=== PATIENT | female | born 1945 | race Two or more races ===

== ENCOUNTER 2021-09-09 11:37 | Inpatient (IN) | payer MEDICARE, SELFPAY ==
[2021-09-09 12:31] VITALS: BP 141/63; PULSE 86; RESP 16; TEMP 36.8; O2SAT 99; BMI 38.7
[2021-09-09 12:56] LABS: Appearance Urine CLOUDY; Color Urine YELLOW; Glucose Urine UA NEG (NEG); Leukocyte Esterase Urine 3+ (NEG); Nitrite Urine NEG (NEG); PH 5.5 (5.0-8.0); UACC Culture Trigger YES; Urine Blood NEG (NEG); Urine Ketones NEG (NEG); Urine Protein NEG (NEG-TRACE)
[2021-09-09 13:05] LABS: WBC Urine 30-49 /HPF (0-4)
[2021-09-09 13:06] LABS: Bacteria Urine 1+ /LPF; COVID-19 Test Negative (Negative); Squamous Epithelial Cell Urine 2+ /LPF
[2021-09-09 13:07] LABS: Amphetamine Screen Urine Not Detected (Not Detect); Barbiturates, Urine Not Detected (Not Detect); Benzodiazepines Screen Urine Not Detected (Not Detect); Cannabinoid Screen Urine Not Detected (Not Detect); Cocaine Screen Urine Not Detected (Not Detect); Fentanyl, urine Not Detected (Not Detect); Opiate Screen Urine Not Detected (Not Detect); Phencyclidine Screen Urine Not Detected (Not Detect)
--- NOTE | 2021-09-09 13:16 | PHA.MEDREC ---
Pharmacy Consult ? Medication Reconciliation Pharmacy has completed the medication reconciliation. Patient reports that she does not take the trazodone and melatonin. She reported that she took some medications this morning but told nurse Naida that she has not taken medications for 4 days. Adriana Arroyo, PharmD
[2021-09-09 13:35] LABS: MANUAL DIFF FLAG NO
[2021-09-09 13:41] LABS: Basophils Percent Auto 0.5 % (0-2); Eosinophils Absolute Auto 0.2 X10*3/uL (0.0-0.4); Eosinophils Percent Auto 2.3 % (0-4); Imm Gran Abs Auto 0.02 X10*3/uL (0.00-0.03); Imm Gran Pct Auto 0.3 % (0.0-0.4); Lymphocytes Absolute Auto 1.4 X10*3/uL (1.2-4.9); Lymphocytes Percent Auto 20.7 % (20-40); Mean Corpuscular HGB Conc 31.4 g/dl (31.0-35.0); Mean Corpuscular Hemoglobin 28.3 pg (27.0-33.0); Mean Platelet Volume 9.5 fL (9.4-12.3); Monocytes Absolute Auto 0.5 X10*3/uL (0.1-1.2); Monocytes Percent Auto 7.4 % (2-11); Neutrophils Absolute Auto 4.6 x10*3/uL (2.0-8.3); Neutrophils Percent Auto 68.8 % (45-73); Platelet Count 240 X10*3/uL (160-400); Red Blood Count 3.89 X10*6/uL (4.20-5.50); White Blood Count 6.6 X10*3/uL (4.8-10.8)
[2021-09-09 13:52] LABS: Alanine Aminotransferase 14 U/L (0-31); Albumin Level 4.3 g/dL (3.5-5.0); Alkaline Phosphatase 73 U/L (39-117); Anion Gap 16 (12-20); Aspartate Amino Transferase 16 U/L (5-31); Bilirubin Direct 0.2 mg/dL (0.0-0.5); Bilirubin Total 0.3 mg/dL (0.0-1.0); Blood Urea Nitrogen 23 mg/dL (9-16); Calcium 8.9 mg/dL (8.4-10.2); Carbon Dioxide 24 mmol/L (22-29); Chloride 101 mmol/L (96-108); Creatinine Clr Calc Pharmacy 35.7; Estimated Glomerular Filt Rate 38; Glucose Random 109 mg/dL (60-115); Magnesium 2.1 mg/dL (1.6-2.6); Potassium 3.8 mmol/L (3.3-5.1); Sodium 137 mmol/L (135-145)
--- NOTE | 2021-09-09 14:42 | ED.PSYCH ---
HPI - Psych General Chief Complaint: Psychiatric Symptoms Stated Complaint: crisis Time Seen by Provider: 09/09/21 12:18 Source: patient Mode of arrival: ambulatory History of Present Illness HPI Narrative: 75-year-old female presenting to the ED reporting increased anxiety x1 week with medication noncompliance. Reports decreased food intake. States felt like this was the last time she was going to see her house, but denies SI/HI. Denies EtOH/illicit drugs, CP/SOB, abdominal pain, nausea/vomiting, visual and auditory hallucinations MD complaint: feels depressed and anxiety Related Data Home Medications Medication Instructions Recorded Confirmed aspirin 81 mg tablet,delayed 1 tab PO DAILY 09/09/21 09/09/21 release atorvastatin 20 mg tablet 1 tab PO DAILY 09/09/21 09/09/21 cyanocobalamin (vitamin B-12) 1 tab PO DAILY 09/09/21 09/09/21 1,000 mcg tablet escitalopram oxalate 10 mg tablet 1 tab PO DAILY 09/09/21 09/09/21 fluticasone propionate 110 1 puff INHALATION BID PRN 09/09/21 09/09/21 mcg/actuation HFA aerosol inhaler (Flovent HFA) furosemide 40 mg tablet 1 tab PO DAILY 09/09/21 09/09/21 gabapentin 300 mg capsule 1 cap PO DAILY 09/09/21 09/09/21 levothyroxine 50 mcg tablet 1 tab PO DAILY 09/09/21 09/09/21 meloxicam 15 mg tablet 1 tab PO DAILY 09/09/21 09/09/21 olmesartan 20 1 tab PO DAILY 09/09/21 09/09/21 mg-hydrochlorothiazide 12.5 mg tablet vit C 250 mg-vit E 90 mg-zinc 40 1 cap PO BID 09/09/21 09/09/21 mg-copper 1 [id number] capsule (PreserVision AREDS-2) Allergies Allergy/AdvReac Type Severity Reaction Status Date / Time No Known Allergies Allergy Unverified 09/09/21 12:18 Review of Systems Review of Systems: Constitutional: No Fever, No Chills, No Fatigue, No Malaise ENT/Mouth: No Ear Pain, No Nasal Congestion, No sore throat, No Swallowing Difficulty Eyes: No Eye Pain, No Swelling, No Redness Cardiovascular: No Chest Pain, No SOB, No Edema Respiratory: No Cough, No Dyspnea Gastrointestinal: No Nausea, No Vomiting, No Diarrhea, No Constipation, No Abdominal pain Genitourinary: No Dysuria, No Urinary Frequency, No Hematuria Musculoskeletal: No joint pain, No Myalgias, No Joint Swelling Skin: No Skin Lesions, No rash Neuro: No Weakness, No Headache Psych: + Anxiety/Panic, + Depression, No SI/HI/AH/VH Yes all other systems are reviewed and are negative [facility] Past Medical History Attestation statement: The following information was validated with the patient. Social History Social History Advance Directives: No Physical Exam Vital Signs: Vital Signs: Last Vital Signs Temp 98.3 F 09/09/21 12:31 Pulse 86 09/09/21 12:31 Resp 16 09/09/21 12:31 BP 141/63 H 09/09/21 12:31 Pulse Ox 99 09/09/21 12:31 Body Mass Index 38.7 Const: General: cooperative and no acute distress Orientation/consciousness: patient oriented x3 Limitations: no limitations HENMT: Head: Yes normal to inspection Ears: hearing grossly normal bilaterally General nose exam: Normal external nose present Face and sinus: Yes normal facial exam Eyes: General: appearance normal, both eyes and all related structures EOM: EOMs intact bilaterally Neck: Neck: Yes normal visual inspection and Yes no meningeal signs Resp: Effort & Inspection: normal respiratory effort Auscultation: clear to auscultation bilaterally, no rales, no rhonchi and no wheezes Cardio: Rate: regular rate Heart sounds: S1 normal heart sound present and S2 normal heart sound present GI: Inspection: Yes normal to inspection Palpation (GI): Soft to palpation, nontender, no guarding and not rigid Skin: Rashes: no rashes Wounds: no wounds Neuro: General: patient oriented x3, gait normal, tone normal, no meningeal signs and CN's II-XI intact bilaterally Gait exam (Neuro): Normal gait present Extrem: General: Yes normal to inspection Psych: Affect: Anxious affect present Attitude: cooperative Thought content: no homicidality Insight: Fair insight present (Psych) Course Course Course Narrative: -[id number]-- no leukocytosis. labs otherwise unremarkable - UA infected patient given p.o. Ceftin 250mg bid x 7 days MDM - Psych MDM Narrative Medical decision making narrative: 75-year-old female presenting to the ED reporting increased anxiety x1 week with medication noncompliance. on exam vital signs stable, NAD/nontoxic, physical exam as above. Rule out organic causes including metabolic/infectious etiology & obtain crisis eval -patient was evaluated outpatient and is now a voluntary inpatient bed search Medical Records Attestation: I reviewed the patient's medical records. Lab Data Attestation: I reviewed the patient's lab results. Result diagrams: 09/09/21 13:31 09/09/21 13:31 Labs: Lab Results 09/09/21 09/09/21 09/09/21 Range/Units 12:42 12:42 12:42 WBC (4.8-10.8) X10*3/uL RBC (4.20-5.50) X10*6/uL Hgb (12.0-16.0) g/dl Hct (37.0-47.0) % MCV (80.0-98.0) fL MCH (27.0-33.0) pg MCHC (31.0-35.0) g/dl RDW (11.0-16.0) % Plt Count (160-400) X10*3/uL MPV (9.4-12.3) fL Immature Gran % (Auto) (0.0-0.4) % Neut % (Auto) (45-73) % Lymph % (Auto) (20-40) % [place] % (Auto) (2-11) % Eos % (Auto) (0-4) % Baso % (Auto) (0-2) % Lymph # (Auto) (1.2-4.9) X10*3/uL [place] # (Auto) (0.1-1.2) X10*3/uL Eos # (Auto) (0.0-0.4) X10*3/uL Baso # (Auto) (0.0-0.2) X10*3/uL Abs Immat Gran (auto) (0.00-0.03) X10*3/uL Absolute Neuts (auto) (2.0-8.3) x10*3/uL Absolute Nucleated RBC (0.0-0.012) X10*3/uL Nucleated RBC % (auto) (0.0-0.2) /100WBC Sodium (135-145) mmol/L Potassium (3.3-5.1) mmol/L Chloride (96-108) mmol/L Carbon Dioxide (22-29) mmol/L Anion Gap (12-20) BUN (9-16) mg/dL Creatinine (0.5-1.4) mg/dL Estim Creat Clear Calc Estimated GFR Random Glucose (60-115) mg/dL Calcium (8.4-10.2) mg/dL Magnesium (1.6-2.6) mg/dL Total Bilirubin (0.0-1.0) mg/dL Direct Bilirubin (0.0-0.5) mg/dL AST (5-31) U/L ALT (0-31) U/L Alkaline Phosphatase (39-117) U/L Total Protein (6.5-8.0) g/dL Albumin (3.5-5.0) g/dL Urine Color YELLOW Urine Appearance CLOUDY Urine pH 5.5 (5.0-8.0) Ur Specific [place] 1.020 (1.005-1.025) Urine Protein NEG (NEG-TRACE) MG/DL Urine Glucose (UA) NEG (NEG) MG/DL Urine Ketones NEG (NEG) MG/DL Urine Blood NEG (NEG) Urine Nitrite NEG (NEG) Ur Leukocyte Esterase 3+ H (NEG) Urine RBC 1-4 (0) /HPF Urine WBC 30-49 H (0-4) /HPF Ur Squamous Epith Cells 2+ /LPF Urine Bacteria 1+ /LPF Urine Opiates Screen Not Detected (Not Detect) Urine Fentanyl Screen Not Detected (Not Detect) Ur Barbiturates Screen Not Detected (Not Detect) Ur Phencyclidine Scrn Not Detected (Not Detect) Ur Amphetamines Screen Not Detected (Not Detect) U Benzodiazepines Scrn Not Detected (Not Detect) Urine Cocaine Screen Not Detected (Not Detect) U Marijuana (THC) Screen Not Detected (Not Detect) COVID-19 ([facility]) Negative (Negative) COVID-19 Clin Com See Note 09/09/21 09/09/21 Range/Units 13:31 13:31 WBC 6.6 (4.8-10.8) X10*3/uL RBC 3.89 L (4.20-5.50) X10*6/uL Hgb 11.0 L (12.0-16.0) g/dl Hct 35.0 L (37.0-47.0) % MCV 90.0 (80.0-98.0) fL MCH 28.3 (27.0-33.0) pg MCHC 31.4 (31.0-35.0) g/dl RDW 13.0 (11.0-16.0) % Plt Count 240 (160-400) X10*3/uL MPV 9.5 (9.4-12.3) fL Immature Gran % (Auto) 0.3 (0.0-0.4) % Neut % (Auto) 68.8 (45-73) % Lymph % (Auto) 20.7 (20-40) % [place] % (Auto) 7.4 (2-11) % Eos % (Auto) 2.3 (0-4) % Baso % (Auto) 0.5 (0-2) % Lymph # (Auto) 1.4 (1.2-4.9) X10*3/uL [place] # (Auto) 0.5 (0.1-1.2) X10*3/uL Eos # (Auto) 0.2 (0.0-0.4) X10*3/uL Baso # (Auto) 0.0 (0.0-0.2) X10*3/uL Abs Immat Gran (auto) 0.02 (0.00-0.03) X10*3/uL Absolute Neuts (auto) 4.6 (2.0-8.3) x10*3/uL Absolute Nucleated RBC 0.000 (0.0-0.012) X10*3/uL Nucleated RBC % (auto) 0.0 (0.0-0.2) /100WBC Sodium 137 (135-145) mmol/L Potassium 3.8 (3.3-5.1) mmol/L Chloride 101 (96-108) mmol/L Carbon Dioxide 24 (22-29) mmol/L Anion Gap 16 (12-20) BUN 23 H (9-16) mg/dL Creatinine 1.36 (0.5-1.4) mg/dL Estim Creat Clear Calc 35.7 Estimated GFR 38 Random Glucose 109 (60-115) mg/dL Calcium 8.9 (8.4-10.2) mg/dL Magnesium 2.1 (1.6-2.6) mg/dL Total Bilirubin 0.3 (0.0-1.0) mg/dL Direct Bilirubin 0.2 (0.0-0.5) mg/dL AST 16 (5-31) U/L ALT 14 (0-31) U/L Alkaline Phosphatase 73 (39-117) U/L Total Protein 7.0 (6.5-8.0) g/dL Albumin 4.3 (3.5-5.0) g/dL Urine Color Urine Appearance Urine pH (5.0-8.0) Ur Specific [place] (1.005-1.025) Urine Protein (NEG-TRACE) MG/DL Urine Glucose (UA) (NEG) MG/DL Urine Ketones (NEG) MG/DL Urine Blood (NEG) Urine Nitrite (NEG) Ur Leukocyte Esterase (NEG) Urine RBC (0) /HPF Urine WBC (0-4) /HPF Ur Squamous Epith Cells /LPF Urine Bacteria /LPF Urine Opiates Screen (Not Detect) Urine Fentanyl Screen (Not Detect) Ur Barbiturates Screen (Not Detect) Ur Phencyclidine Scrn (Not Detect) Ur Amphetamines Screen (Not Detect) U Benzodiazepines Scrn (Not Detect) Urine Cocaine Screen (Not Detect) U Marijuana (THC) Screen (Not Detect) COVID-19 ([facility]) (Negative) COVID-19 Clin Com Discharge Plan Discharge Clinical Impression: Acute UTI, Depressed, Anxiety Patient Disposition: Still a Patient Prescriptions: No Action furosemide 40 mg tablet 1 tab PO DAILY RF: 0 atorvastatin 20 mg tablet 1 tab PO DAILY RF: 0 meloxicam 15 mg tablet 1 tab PO DAILY RF: 0 cyanocobalamin (vitamin B-12) 1,000 mcg tablet 1 tab PO DAILY RF: 0 aspirin 81 mg tablet,delayed release (DR/EC) 1 tab PO DAILY RF: 0 levothyroxine 50 mcg tablet 1 tab PO DAILY RF: 0 gabapentin 300 mg capsule 1 cap PO DAILY RF: 0 Flovent HFA 110 mcg/actuation HFA aerosol inhaler 1 puff inhalation BID PRN (Reason: Wheezing) RF: 0 escitalopram oxalate 10 mg tablet 1 tab PO DAILY RF: 0 olmesartan-hydrochlorothiazide 20-12.5 mg tablet 1 tab PO DAILY RF: 0 PreserVision AREDS-2 250-90-40-1 mg capsule 1 cap PO BID RF: 0
[2021-09-09 16:20] VITALS: BP 176/64; PULSE 85; RESP 18; TEMP 36.3; O2SAT 100
[2021-09-09 16:52] VITALS: BP 176/64; PULSE 85
[2021-09-09] MEDS: cloNIDine HCL 0.1 MG TABLET PO (16:52)
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
[2021-09-09 18:13] VITALS: BP 105/62; PULSE 82
[2021-09-09] MEDS: traZODone HCL 50 MG TABLET PO (21:04)
[2021-09-09] MEDS: NaPROXEN 250 MG TABLET PO (21:04)
[2021-09-10] MEDS: Levothyroxine Sodium 50 MCG TABLET PO (06:46)
[2021-09-10] MEDS: Escitalopram Oxalate 10 MG TABLET PO (08:43)
[2021-09-10] MEDS: NaPROXEN 250 MG TABLET PO ×2 (08:43→21:28)
[2021-09-10] MEDS: Cyanocobalamin (Vitamin B-12) 1,000 MCG TABLET 1000 MCG PO (08:43)
[2021-09-10] MEDS: Gabapentin 300 MG CAPSULE PO (08:43)
[2021-09-10] MEDS: Aspirin Enteric Coated 81 MG TABLET.DR PO (08:44)
[2021-09-10 08:55] VITALS: BP 120/51; PULSE 80; RESP 18; TEMP 36.4; O2SAT 97
--- NOTE | 2021-09-10 09:21 | MHC.CLN ---
NUTRITION ADDED 2 GRAM SODIUM TO DIET ORDER. PATIENT TAKES DIURETICS.
[2021-09-10 10:01] VITALS: BP 133/69; PULSE 93
[2021-09-10] MEDS: Valsartan 80 MG TABLET PO (10:01)
[2021-09-10] MEDS: hydroCHLOROthiazide 12.5 MG TABLET PO (10:02)
[2021-09-10] MEDS: Furosemide 40 MG TABLET PO (10:02)
[2021-09-10 10:14] VITALS: BP 133/69; PULSE 93
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
[2021-09-10] MEDS: OLANZapine 5 MG TABLET PO (21:27)
[2021-09-10] MEDS: Mirtazapine 15 MG TABLET PO (21:28)
[2021-09-10] MEDS: Atorvastatin Calcium 20 MG TABLET PO (21:28)
[2021-09-10 21:34] VITALS: BP 123/58; PULSE 73; TEMP 37.1; O2SAT 98
--- NOTE | 2021-09-11 | ECG_ITS ---
Test Reason : qtc prolongation Blood Pressure : / mmHG Vent. Rate : 064 BPM Atrial Rate : 064 BPM P-R Int : 178 ms QRS Dur : 076 ms QT Int : 424 ms P-R-T Axes : 048 004 101 degrees QTc Int : 437 ms Normal sinus rhythm T wave abnormality, consider anterolateral ischemia Abnormal ECG No previous ECGs available Referred By: Michelle Azevedo Electronically Signed By:KYLAH CHAPPELL MD
[2021-09-11] MEDS: Levothyroxine Sodium 50 MCG TABLET PO (06:29)
[2021-09-11 07:00] VITALS: BMI 41.0
--- NOTE | 2021-09-11 07:46 | HO.PSYCHPN ---
Subjective Subjective Date of Service: 09/11/21 Reason For Visit: crisis Subjective Notes: Conditional Voluntary Interim History: Pt reports feeling depressed. She denies SI/HI. She reports sleep and appetite are okay. She reports anxious mood. Per nursing, she is taking medications as prescribed. She is mostly in her room. No behavioral concerns. Note that culture does not show UTI, pt denies any symptoms. will stop ceftin. Medication Compliance: Yes Side effects from medications: No Review of Systems Review of Systems Constitutional: No Fever, No Chills, No Fatigue, No Malaise ENT/Mouth: No Ear Pain, No Nasal Congestion, No sore throat, No Swallowing Difficulty Eyes: No Eye Pain, No Swelling, No Redness Cardiovascular: No Chest Pain, No SOB, No Edema Respiratory: No Cough, No Dyspnea Gastrointestinal: No Nausea, No Vomiting, No Diarrhea, No Constipation, No Abdominal pain Genitourinary: No Dysuria, No Urinary Frequency, No Hematuria Musculoskeletal: No joint pain, No Myalgias, No Joint Swelling Skin: No Skin Lesions, No rash Neuro: No Weakness, No Headache Psych: + Anxiety/Panic, + Depression, No SI/HI/AH/VH Yes all other systems are reviewed and are negative Mental Status Exam Mental Status Exam Narrative: appropriately dressed and groomed. PMR. cooperative. speech slowed and soft with increased latency, decreased prosody. thoughts linear and logical without apparent delusions or paranoia. affect constricted, hypo-intense, non-labile. mood depressed and anxious. denies SI/HI/AVH. Diagnostics Vital Signs (24Hr): Vital Signs - 24 hr 09/11/21 09:00 09/11/21 09:33 09/11/21 21:15 Temperature 98.6 F 97.3 F Pulse Rate 81 81 63 Respiratory Rate 16 Blood Pressure 146/65 H 146/65 H 139/61 Pulse Oximetry 96 100 Body Mass Index 41.0 Labs Results: 09/09/21 13:31 09/09/21 13:31 Medications Medications Current Medications Acetaminophen (Acetaminophen 325 Mg Tablet) 650 mg PO Q6H PRN PRN Reason: Headache/Pain Mild Scale (1-3) Al Hydroxide/Mg Hydroxide (Magnesium Hydrox/Alum Hydrox 30 Ml Oral.Susp) 30 ml PO Q6H PRN PRN Reason: Heartburn/Nausea Aspirin (Aspirin Enteric Coated 81 Mg Tablet.Dr) 81 mg PO DAILY [facility] Last Admin: 09/11/21 09:33 Dose: 81 mg Documented by: Atorvastatin Calcium (Atorvastatin Calcium 20 Mg Tablet) 20 mg PO BEDTIME [facility] Last Admin: 09/11/21 21:20 Dose: 20 mg Documented by: Clonidine HCl (Clonidine Hcl 0.1 Mg Tablet) 0.1 mg PO Q4H PRN; Protocol PRN Reason: Sbp > 150 Last Admin: 09/09/21 16:52 Dose: 0.1 mg Documented by: Cyanocobalamin (Cyanocobalamin (Vitamin B-12) 1,000 Mcg Tablet) 1,000 mcg PO DAILY [facility] Last Admin: 09/11/21 09:32 Dose: 1,000 mcg Documented by: Escitalopram Oxalate (Escitalopram Oxalate 10 Mg Tablet) 10 mg PO DAILY [facility] Last Admin: 09/11/21 09:34 Dose: 10 mg Documented by: Fluticasone Propionate (Fluticasone Propionate 100 Mcg Blst.W.Dev) 1 puff INHALE RBID PRN PRN Reason: Wheezing Furosemide (Furosemide 40 Mg Tablet) 40 mg PO DAILY [facility]; Protocol Last Admin: 09/11/21 09:33 Dose: 40 mg Documented by: Gabapentin (Gabapentin 300 Mg Capsule) 300 mg PO DAILY [facility] Last Admin: 09/11/21 09:34 Dose: 300 mg Documented by: Hydrochlorothiazide (Hydrochlorothiazide 12.5 Mg Tablet) 12.5 mg PO DAILY [facility] Last Admin: 09/11/21 09:33 Dose: 12.5 mg Documented by: Hydroxyzine HCl (Hydroxyzine Hcl 25 Mg Tablet) 25 mg PO BEDTIME PRN PRN Reason: Anxiety Levothyroxine Sodium (Levothyroxine Sodium 50 Mcg Tablet) 50 mcg PO DAILY@0600 [facility] Last Admin: 09/12/21 06:15 Dose: 50 mcg Documented by: Magnesium Hydroxide (Milk Of Magnesia 30 Ml Oral.Susp) 30 ml PO DAILY PRN PRN Reason: Constipation Last Admin: 09/11/21 21:24 Dose: 30 ml Documented by: Mirtazapine (Mirtazapine 15 Mg Tablet) 15 mg PO BEDTIME [facility] Last Admin: 09/11/21 21:20 Dose: 15 mg Documented by: Mirtazapine (Mirtazapine 15 Mg Tablet) 15 mg PO BEDTIME PRN PRN Reason: insomnia Naproxen (Naproxen 250 Mg Tablet) 250 mg PO BID [facility] Last Admin: 09/11/21 21:20 Dose: 250 mg Documented by: Olanzapine (Olanzapine 5 Mg Tablet) 5 mg PO BEDTIME [facility] Last Admin: 09/11/21 21:20 Dose: 5 mg Documented by: Polyethylene Glycol (Polyethylene Glycol 3350 17 Gm Powd.Pack) 17 gm PO DAILY PRN PRN Reason: Constipation Last Admin: 09/11/21 11:55 Dose: 17 gm Documented by: Trazodone HCl (Trazodone Hcl 50 Mg Tablet) 50 mg PO BEDTIME PRN PRN Reason: Insomnia Last Admin: 09/09/21 21:04 Dose: 50 mg Documented by: Valsartan (Valsartan 80 Mg Tablet) 80 mg PO DAILY [facility] Last Admin: 09/11/21 09:33 Dose: 80 mg Documented by: Allergies Allergies Allergy/AdvReac Type Severity Reaction Status Date / Time No Known Allergies Allergy Unverified 09/09/21 12:18 Assessment & Plan Assessment & Plan (1) Major depressive disorder, recurrent severe without psychotic features: Status: Acute Code(s): F33.2 - Major depressive disorder, recurrent severe without psychotic features Assessment and Plan: PLAN: continue per primary treatment team. start remeron at HS for appetite stimulation, sedation, and anti-depressant effect. start zyprexa at HS for appetite stimulation, sedation, anxiolytic and anti-depressant effect. continue home meds otherwise. I spent minutes with the patient and/or on the patient floor today, greater than?50% of which was spent counseling/coordinating care. Reason for contiued inpatient stay Substantial Risk for: inability to function
[2021-09-11 09:00] VITALS: BP 146/65; PULSE 81; RESP 16; TEMP 37; O2SAT 96
[2021-09-11] MEDS: Cyanocobalamin (Vitamin B-12) 1,000 MCG TABLET 1000 MCG PO (09:32)
[2021-09-11] MEDS: NaPROXEN 250 MG TABLET PO ×2 (09:32→21:20)
[2021-09-11 09:33] VITALS: BP 146/65; PULSE 81
[2021-09-11] MEDS: Aspirin Enteric Coated 81 MG TABLET.DR PO (09:33)
[2021-09-11] MEDS: hydroCHLOROthiazide 12.5 MG TABLET PO (09:33)
[2021-09-11] MEDS: Furosemide 40 MG TABLET PO (09:33)
[2021-09-11] MEDS: Valsartan 80 MG TABLET PO (09:33)
[2021-09-11] MEDS: Gabapentin 300 MG CAPSULE PO (09:34)
[2021-09-11] MEDS: Escitalopram Oxalate 10 MG TABLET PO (09:34)
[2021-09-11] MEDS: polyethylene glycoL 3350 17 GM POWD.PACK PO (11:55)
[2021-09-11 21:15] VITALS: BP 139/61; PULSE 63; TEMP 36.3; O2SAT 100
[2021-09-11] MEDS: Mirtazapine 15 MG TABLET PO (21:20)
[2021-09-11] MEDS: OLANZapine 5 MG TABLET PO (21:20)
[2021-09-11] MEDS: Atorvastatin Calcium 20 MG TABLET PO (21:20)
[2021-09-11] MEDS: Milk of Magnesia 30 ML ORAL.SUSP PO (21:24)
[2021-09-12] MEDS: Levothyroxine Sodium 50 MCG TABLET PO (06:15)
--- NOTE | 2021-09-12 06:19 | PC.NURSE ---
on rising patient reports + BM. showered after having movement.
[2021-09-12 08:04] VITALS: BP 156/71; PULSE 75; RESP 17; TEMP 36.3; O2SAT 99
[2021-09-12] MEDS: Aspirin Enteric Coated 81 MG TABLET.DR PO (08:27)
[2021-09-12] MEDS: NaPROXEN 250 MG TABLET PO ×2 (08:27→21:32)
[2021-09-12] MEDS: Furosemide 40 MG TABLET PO (08:27)
[2021-09-12] MEDS: Cyanocobalamin (Vitamin B-12) 1,000 MCG TABLET 1000 MCG PO (08:27)
[2021-09-12 08:28] VITALS: BP 156/71; PULSE 75
[2021-09-12] MEDS: hydroCHLOROthiazide 12.5 MG TABLET PO (08:28)
[2021-09-12] MEDS: Valsartan 80 MG TABLET PO (08:28)
[2021-09-12] MEDS: Gabapentin 300 MG CAPSULE PO (08:28)
[2021-09-12] MEDS: Escitalopram Oxalate 10 MG TABLET PO (08:29)
--- NOTE | 2021-09-12 12:31 | HO.PSYCHPN ---
Subjective Subjective Date of Service: 09/12/21 Reason For Visit: crisis Interim History: pt seen with seismic interpreter and SW. pt reports her mood has improved - yet she remains depressed. her anxiety has resolved. she is sleeping better and declines any change in her sleep medications. she c/o feeling groggy after taking her morning medications and agrees to DC gabapentin to see if that would help. thinking of discharge sometime next week. per staff, attending groups. feeling a little better. slept better last night. no anx, + depression. no SI/HI. c/o decreased appetite. c/o constipation. Mental Status Exam Mental Status Exam Narrative: appropriately dressed and groomed. PMR improved quite substantially from 2 days ago. cooperative. speech quicker and soft with only mildly increased latency now, decreased prosody. thoughts linear and logical without apparent delusions or paranoia. affect constricted, hypo-intense, non-labile. mood depressed. denies SI/HI/AVH. Diagnostics Vital Signs (24Hr): Vital Signs - 24 hr 09/11/21 21:15 09/12/21 08:04 09/12/21 08:28 Temperature 97.3 F 97.3 F Pulse Rate 63 75 75 Respiratory Rate 17 Blood Pressure 139/61 156/71 H 156/71 H Pulse Oximetry 100 99 Body Mass Index 41.0 Labs Results: 09/09/21 13:31 09/09/21 13:31 Medications Medications Current Medications Acetaminophen (Acetaminophen 325 Mg Tablet) 650 mg PO Q6H PRN PRN Reason: Headache/Pain Mild Scale (1-3) Al Hydroxide/Mg Hydroxide (Magnesium Hydrox/Alum Hydrox 30 Ml Oral.Susp) 30 ml PO Q6H PRN PRN Reason: Heartburn/Nausea Aspirin (Aspirin Enteric Coated 81 Mg Tablet.) 81 mg PO DAILY [facility] Last Admin: 09/12/21 08:27 Dose: 81 mg Documented by: Atorvastatin Calcium (Atorvastatin Calcium 20 Mg Tablet) 20 mg PO BEDTIME [facility] Last Admin: 09/11/21 21:20 Dose: 20 mg Documented by: Clonidine HCl (Clonidine Hcl 0.1 Mg Tablet) 0.1 mg PO Q4H PRN; Protocol PRN Reason: Sbp > 150 Last Admin: 09/09/21 16:52 Dose: 0.1 mg Documented by: Cyanocobalamin (Cyanocobalamin (Vitamin B-12) 1,000 Mcg Tablet) 1,000 mcg PO DAILY [facility] Last Admin: 09/12/21 08:27 Dose: 1,000 mcg Documented by: Escitalopram Oxalate (Escitalopram Oxalate 10 Mg Tablet) 10 mg PO DAILY [facility] Last Admin: 09/12/21 08:29 Dose: 10 mg Documented by: Fluticasone Propionate (Fluticasone Propionate 100 Mcg Blst.W.Dev) 1 puff INHALE RBID PRN PRN Reason: Wheezing Furosemide (Furosemide 40 Mg Tablet) 40 mg PO DAILY [facility]; Protocol Last Admin: 09/12/21 08:27 Dose: 40 mg Documented by: Hydrochlorothiazide (Hydrochlorothiazide 12.5 Mg Tablet) 12.5 mg PO DAILY [facility] Last Admin: 09/12/21 08:28 Dose: 12.5 mg Documented by: Hydroxyzine HCl (Hydroxyzine Hcl 25 Mg Tablet) 25 mg PO BEDTIME PRN PRN Reason: Anxiety Levothyroxine Sodium (Levothyroxine Sodium 50 Mcg Tablet) 50 mcg PO DAILY@0600 [facility] Last Admin: 09/12/21 06:15 Dose: 50 mcg Documented by: Magnesium Hydroxide (Milk Of Magnesia 30 Ml Oral.Susp) 30 ml PO DAILY PRN PRN Reason: Constipation Last Admin: 09/11/21 21:24 Dose: 30 ml Documented by: Mirtazapine (Mirtazapine 15 Mg Tablet) 15 mg PO BEDTIME [facility] Last Admin: 09/11/21 21:20 Dose: 15 mg Documented by: Mirtazapine (Mirtazapine 15 Mg Tablet) 15 mg PO BEDTIME PRN PRN Reason: insomnia Naproxen (Naproxen 250 Mg Tablet) 250 mg PO BID [facility] Last Admin: 09/12/21 08:27 Dose: 250 mg Documented by: Olanzapine (Olanzapine 5 Mg Tablet) 5 mg PO BEDTIME [facility] Last Admin: 09/11/21 21:20 Dose: 5 mg Documented by: Polyethylene Glycol (Polyethylene Glycol 3350 17 Gm Powd.Pack) 17 gm PO DAILY PRN PRN Reason: Constipation Last Admin: 09/11/21 11:55 Dose: 17 gm Documented by: Trazodone HCl (Trazodone Hcl 50 Mg Tablet) 50 mg PO BEDTIME PRN PRN Reason: Insomnia Last Admin: 09/09/21 21:04 Dose: 50 mg Documented by: Valsartan (Valsartan 80 Mg Tablet) 80 mg PO DAILY [facility] Last Admin: 09/12/21 08:28 Dose: 80 mg Documented by: Allergies Allergies Allergy/AdvReac Type Severity Reaction Status Date / Time No Known Allergies Allergy Unverified 09/09/21 12:18 Assessment & Plan Assessment & Plan (1) Major depressive disorder, recurrent severe without psychotic features: Status: Acute Code(s): F33.2 - Major depressive disorder, recurrent severe without psychotic features Assessment and Plan: PLAN: continue per primary treatment team. started remeron at HS for appetite stimulation, sedation, and anti-depressant effect. started zyprexa at HS for appetite stimulation, sedation, anxiolytic and anti-depressant effect. DCed gabapentin as likely not helpful for her and causing grogginess. continued home meds otherwise. I spent minutes with the patient and/or on the patient floor today, greater than?50% of which was spent counseling/coordinating care. Reason for contiued inpatient stay Substantial Risk for: harm to self, inability to function and rapid decompensation
[2021-09-12] MEDS: Atorvastatin Calcium 20 MG TABLET PO (21:32)
[2021-09-12] MEDS: Mirtazapine 15 MG TABLET PO (21:32)
[2021-09-12] MEDS: OLANZapine 5 MG TABLET PO (21:32)
[2021-09-12 21:43] VITALS: BP 159/64; PULSE 66; RESP 18; TEMP 36.2; O2SAT 96
[2021-09-13 06:00] VITALS: BP 167/67; PULSE 89; RESP 16; TEMP 36.6; O2SAT 96
[2021-09-13] MEDS: Levothyroxine Sodium 50 MCG TABLET PO (06:07)
[2021-09-13 08:57] VITALS: BP 167/67; PULSE 89
[2021-09-13] MEDS: Furosemide 40 MG TABLET PO (08:57)
[2021-09-13] MEDS: Cyanocobalamin (Vitamin B-12) 1,000 MCG TABLET 1000 MCG PO (08:57)
[2021-09-13] MEDS: Valsartan 80 MG TABLET PO (08:57)
[2021-09-13] MEDS: hydroCHLOROthiazide 12.5 MG TABLET PO (08:58)
[2021-09-13] MEDS: Escitalopram Oxalate 10 MG TABLET PO (08:58)
[2021-09-13] MEDS: Aspirin Enteric Coated 81 MG TABLET.DR PO (08:58)
[2021-09-13] MEDS: NaPROXEN 250 MG TABLET PO ×2 (08:58→21:13)
--- NOTE | 2021-09-13 13:23 | P.PNPSI_ITS ---
Subjective Subjective Date of Service: 09/13/21 Reason For Visit: crisis Interim History: pt seen with body and fender mechanic via ipad. pt reports she slept well last night and she is not groggy this morning. she reports her mood is normal, fine. she agrees to continue with current medications. per staff, no change in presentation from yesterday. anx/dep improved. denies any urinary Sx. left heel cracked, asking for cream. Mental Status Exam Mental Status Exam Narrative: appropriately dressed and groomed. PMR improved quite substantially from 2 days ago. cooperative. speech quicker and soft with only mildly increased latency now, decreased prosody. thoughts linear and logical without apparent delusions or paranoia. affect constricted, hypo-intense, non-labile. mood normal, fine. no SI/HI/AVH expressed. Diagnostics Vital Signs (24Hr): Vital Signs - 24 hr 09/12/21 21:43 09/13/21 06:00 09/13/21 08:57 Temperature 97.2 F 97.8 F Pulse Rate 66 89 89 Respiratory Rate 18 16 Blood Pressure 159/64 H 167/67 H 167/67 H Pulse Oximetry 96 96 Body Mass Index 41.0 Labs Results: 09/09/21 13:31 09/09/21 13:31 Medications Medications Current Medications Acetaminophen (Acetaminophen 325 Mg Tablet) 650 mg PO Q6H PRN PRN Reason: Headache/Pain Mild Scale (1-3) Al Hydroxide/Mg Hydroxide (Magnesium Hydrox/Alum Hydrox 30 Ml Oral.Susp) 30 ml PO Q6H PRN PRN Reason: Heartburn/Nausea Aspirin (Aspirin Enteric Coated 81 Mg Tablet.) 81 mg PO DAILY [facility] Last Admin: 09/13/21 08:58 Dose: 81 mg Documented by: Atorvastatin Calcium (Atorvastatin Calcium 20 Mg Tablet) 20 mg PO BEDTIME [facility] Last Admin: 09/12/21 21:32 Dose: 20 mg Documented by: Clonidine HCl (Clonidine Hcl 0.1 Mg Tablet) 0.1 mg PO Q4H PRN; Protocol PRN Reason: Sbp > 150 Last Admin: 09/09/21 16:52 Dose: 0.1 mg Documented by: Cyanocobalamin (Cyanocobalamin (Vitamin B-12) 1,000 Mcg Tablet) 1,000 mcg PO DAILY [facility] Last Admin: 09/13/21 08:57 Dose: 1,000 mcg Documented by: Escitalopram Oxalate (Escitalopram Oxalate 10 Mg Tablet) 10 mg PO DAILY [facility] Last Admin: 09/13/21 08:58 Dose: 10 mg Documented by: Fluticasone Propionate (Fluticasone Propionate 100 Mcg Blst.W.Dev) 1 puff INHALE RBID PRN PRN Reason: Wheezing Furosemide (Furosemide 40 Mg Tablet) 40 mg PO DAILY [facility]; Protocol Last Admin: 09/13/21 08:57 Dose: 40 mg Documented by: Hydrochlorothiazide (Hydrochlorothiazide 12.5 Mg Tablet) 12.5 mg PO DAILY [facility] Last Admin: 09/13/21 08:58 Dose: 12.5 mg Documented by: Hydroxyzine HCl (Hydroxyzine Hcl 25 Mg Tablet) 25 mg PO BEDTIME PRN PRN Reason: Anxiety Levothyroxine Sodium (Levothyroxine Sodium 50 Mcg Tablet) 50 mcg PO DAILY@0600 [facility] Last Admin: 09/13/21 06:07 Dose: 50 mcg Documented by: Magnesium Hydroxide (Milk Of Magnesia 30 Ml Oral.Susp) 30 ml PO DAILY PRN PRN Reason: Constipation Last Admin: 09/11/21 21:24 Dose: 30 ml Documented by: Mirtazapine (Mirtazapine 15 Mg Tablet) 15 mg PO BEDTIME [facility] Last Admin: 09/12/21 21:32 Dose: 15 mg Documented by: Mirtazapine (Mirtazapine 15 Mg Tablet) 15 mg PO BEDTIME PRN PRN Reason: insomnia Naproxen (Naproxen 250 Mg Tablet) 250 mg PO BID [facility] Last Admin: 09/13/21 08:58 Dose: 250 mg Documented by: Olanzapine (Olanzapine 5 Mg Tablet) 5 mg PO BEDTIME [facility] Last Admin: 09/12/21 21:32 Dose: 5 mg Documented by: Polyethylene Glycol (Polyethylene Glycol 3350 17 Gm Powd.Pack) 17 gm PO DAILY PRN PRN Reason: Constipation Last Admin: 09/11/21 11:55 Dose: 17 gm Documented by: Trazodone HCl (Trazodone Hcl 50 Mg Tablet) 50 mg PO BEDTIME PRN PRN Reason: Insomnia Last Admin: 09/09/21 21:04 Dose: 50 mg Documented by: Valsartan (Valsartan 80 Mg Tablet) 80 mg PO DAILY [facility] Last Admin: 09/13/21 08:57 Dose: 80 mg Documented by: Allergies Allergies Allergy/AdvReac Type Severity Reaction Status Date / Time No Known Allergies Allergy Unverified 09/09/21 12:18 Assessment & Plan Assessment & Plan (1) Major depressive disorder, recurrent severe without psychotic features: Status: Acute Code(s): F33.2 - Major depressive disorder, recurrent severe without psychotic features Assessment and Plan: PLAN: started remeron at HS for appetite stimulation, sedation, and anti-depressant effect. started zyprexa at HS for appetite stimulation, sedation, anxiolytic and anti- depressant effect. DCed gabapentin as likely not helpful for her and causing grogginess; morning post-medication sedation improved after DC of gabapentin. continued home meds otherwise. discharge next week. I spent minutes with the patient and/or on the patient floor today, greater than?50% of which was spent counseling/coordinating care. Reason for contiued inpatient stay Substantial Risk for: inability to function and rapid decompensation
[2021-09-13] MEDS: Ammonium Lactate 12 % Cream 140 GM TUBE 1 APPL TOPICAL ×2 (14:20→21:16)
[2021-09-13 19:53] VITALS: BP 130/62; PULSE 60; RESP 16; TEMP 36.7; O2SAT 99
[2021-09-13] MEDS: OLANZapine 5 MG TABLET PO (21:14)
[2021-09-13] MEDS: Atorvastatin Calcium 20 MG TABLET PO (21:14)
[2021-09-13] MEDS: Mirtazapine 15 MG TABLET PO (21:14)
[2021-09-14] MEDS: Levothyroxine Sodium 50 MCG TABLET PO (06:27)
[2021-09-14 08:50] VITALS: BP 125/58; PULSE 74; RESP 16; TEMP 37; O2SAT 97
[2021-09-14 09:03] VITALS: BP 125/58; PULSE 74
[2021-09-14] MEDS: Escitalopram Oxalate 10 MG TABLET PO (09:03)
[2021-09-14] MEDS: Cyanocobalamin (Vitamin B-12) 1,000 MCG TABLET 1000 MCG PO (09:03)
[2021-09-14] MEDS: hydroCHLOROthiazide 12.5 MG TABLET PO (09:03)
[2021-09-14] MEDS: Valsartan 80 MG TABLET PO (09:03)
[2021-09-14] MEDS: Aspirin Enteric Coated 81 MG TABLET.DR PO (09:03)
[2021-09-14] MEDS: NaPROXEN 250 MG TABLET PO ×2 (09:04→20:56)
[2021-09-14] MEDS: Ammonium Lactate 12 % Cream 140 GM TUBE 1 APPL TOPICAL ×2 (11:15→20:56)
--- NOTE | 2021-09-14 13:12 | HO.PSYCHPN ---
Subjective Subjective Date of Service: 09/14/21 Reason For Visit: crisis Interim History: pt seen with sales associate fishing. pt reports she is feeling well, asking about discharge date, asking about getting scripts after discharge. reports she slept we.. she is interested in food but she does not like the food here so is not eating much. she denies any worries or preoccupations. she denies any morning sedation after meds. she lives in her own home, [facility], and that is where she plans to discharge to. she states she would like to discharge this coming wednesday, not earlier, because she wants to be sure her improvement remains intact. per staff, refused lasix this morning bcse she is also on HCTZ, another diuretic. no other notable events or behaviors. Mental Status Exam Mental Status Exam Narrative: appropriately dressed and groomed. PMR improved quite substantially from 3 days ago. cooperative. speech nml rate and latency, decreased prosody. thoughts linear and logical without apparent delusions or paranoia. affect more flexible, hypo-intense, non-labile. mood good. no SI/HI/AVH expressed. Diagnostics Vital Signs (24Hr): Vital Signs - 24 hr 09/13/21 19:53 09/14/21 08:50 09/14/21 09:03 Temperature 98.0 F 98.6 F Pulse Rate 60 74 74 Respiratory Rate 16 16 Blood Pressure 130/62 125/58 L 125/58 L Pulse Oximetry 99 97 Body Mass Index 41.0 Labs Results: 09/09/21 13:31 09/09/21 13:31 Medications Medications Current Medications Acetaminophen (Acetaminophen 325 Mg Tablet) 650 mg PO Q6H PRN PRN Reason: Headache/Pain Mild Scale (1-3) Al Hydroxide/Mg Hydroxide (Magnesium Hydrox/Alum Hydrox 30 Ml Oral.Susp) 30 ml PO Q6H PRN PRN Reason: Heartburn/Nausea Aspirin (Aspirin Enteric Coated 81 Mg Tablet.) 81 mg PO DAILY [facility] Last Admin: 09/14/21 09:03 Dose: 81 mg Documented by: Atorvastatin Calcium (Atorvastatin Calcium 20 Mg Tablet) 20 mg PO BEDTIME [facility] Last Admin: 09/13/21 21:14 Dose: 20 mg Documented by: Clonidine HCl (Clonidine Hcl 0.1 Mg Tablet) 0.1 mg PO Q4H PRN; Protocol PRN Reason: Sbp > 150 Last Admin: 09/09/21 16:52 Dose: 0.1 mg Documented by: Cyanocobalamin (Cyanocobalamin (Vitamin B-12) 1,000 Mcg Tablet) 1,000 mcg PO DAILY [facility] Last Admin: 09/14/21 09:03 Dose: 1,000 mcg Documented by: Escitalopram Oxalate (Escitalopram Oxalate 10 Mg Tablet) 10 mg PO DAILY [facility] Last Admin: 09/14/21 09:03 Dose: 10 mg Documented by: Fluticasone Propionate (Fluticasone Propionate 100 Mcg Blst.W.Dev) 1 puff INHALE RBID PRN PRN Reason: Wheezing Furosemide (Furosemide 40 Mg Tablet) 40 mg PO DAILY [facility]; Protocol Last Admin: 09/14/21 09:04 Dose: Not Given Documented by: Hydrochlorothiazide (Hydrochlorothiazide 12.5 Mg Tablet) 12.5 mg PO DAILY [facility] Last Admin: 09/14/21 09:03 Dose: 12.5 mg Documented by: Hydroxyzine HCl (Hydroxyzine Hcl 25 Mg Tablet) 25 mg PO BEDTIME PRN PRN Reason: Anxiety Lactic Acid (Ammonium Lactate 12 % Cream 140 Gm Tube) 1 appl TOPICAL BID [facility]; Protocol Last Admin: 09/14/21 11:15 Dose: 1 appl Documented by: Levothyroxine Sodium (Levothyroxine Sodium 50 Mcg Tablet) 50 mcg PO DAILY@0600 [facility] Last Admin: 09/14/21 06:27 Dose: 50 mcg Documented by: Magnesium Hydroxide (Milk Of Magnesia 30 Ml Oral.Susp) 30 ml PO DAILY PRN PRN Reason: Constipation Last Admin: 09/11/21 21:24 Dose: 30 ml Documented by: Mirtazapine (Mirtazapine 15 Mg Tablet) 15 mg PO BEDTIME [facility] Last Admin: 09/13/21 21:14 Dose: 15 mg Documented by: Mirtazapine (Mirtazapine 15 Mg Tablet) 15 mg PO BEDTIME PRN PRN Reason: insomnia Naproxen (Naproxen 250 Mg Tablet) 250 mg PO BID [facility] Last Admin: 09/14/21 09:04 Dose: 250 mg Documented by: Olanzapine (Olanzapine 5 Mg Tablet) 5 mg PO BEDTIME [facility] Last Admin: 09/13/21 21:14 Dose: 5 mg Documented by: Polyethylene Glycol (Polyethylene Glycol 3350 17 Gm Powd.Pack) 17 gm PO DAILY PRN PRN Reason: Constipation Last Admin: 09/11/21 11:55 Dose: 17 gm Documented by: Trazodone HCl (Trazodone Hcl 50 Mg Tablet) 50 mg PO BEDTIME PRN PRN Reason: Insomnia Last Admin: 09/09/21 21:04 Dose: 50 mg Documented by: Valsartan (Valsartan 80 Mg Tablet) 80 mg PO DAILY [facility] Last Admin: 09/14/21 09:03 Dose: 80 mg Documented by: Allergies Allergies Allergy/AdvReac Type Severity Reaction Status Date / Time No Known Allergies Allergy Unverified 09/09/21 12:18 Assessment & Plan Assessment & Plan (1) Major depressive disorder, recurrent severe without psychotic features: Status: Acute Code(s): F33.2 - Major depressive disorder, recurrent severe without psychotic features Assessment and Plan: PLAN: started remeron at HS for appetite stimulation, sedation, and anti-depressant effect. started zyprexa at HS for appetite stimulation, sedation, anxiolytic and anti-depressant effect. DCed gabapentin as likely not helpful for her and causing grogginess; morning post-medication sedation improved after DC of gabapentin. continued home meds otherwise. discharge next week. I spent minutes with the patient and/or on the patient floor today, greater than?50% of which was spent counseling/coordinating care. Reason for contiued inpatient stay Substantial Risk for: inability to function and rapid decompensation
[2021-09-14 18:00] VITALS: BP 160/72; PULSE 61; RESP 16; TEMP 36.7; O2SAT 99
[2021-09-14] MEDS: Mirtazapine 15 MG TABLET PO (20:56)
[2021-09-14] MEDS: OLANZapine 5 MG TABLET PO (20:56)
[2021-09-14] MEDS: traZODone HCL 50 MG TABLET PO (20:56)
[2021-09-14] MEDS: Atorvastatin Calcium 20 MG TABLET PO (20:56)
[2021-09-15 08:22] VITALS: BP 137/62; PULSE 67; TEMP 36.6
[2021-09-15] MEDS: Levothyroxine Sodium 50 MCG TABLET PO (08:37)
[2021-09-15] MEDS: Furosemide 40 MG TABLET PO (09:19)
[2021-09-15 09:20] VITALS: BP 137/62; PULSE 67
[2021-09-15] MEDS: Valsartan 80 MG TABLET PO (09:20)
[2021-09-15] MEDS: NaPROXEN 250 MG TABLET PO ×2 (09:20→21:35)
[2021-09-15] MEDS: Cyanocobalamin (Vitamin B-12) 1,000 MCG TABLET 1000 MCG PO (09:20)
[2021-09-15] MEDS: Escitalopram Oxalate 10 MG TABLET PO (09:20)
[2021-09-15] MEDS: Aspirin Enteric Coated 81 MG TABLET.DR PO (09:21)
[2021-09-15] MEDS: hydroCHLOROthiazide 12.5 MG TABLET PO (09:21)
[2021-09-15] MEDS: Ammonium Lactate 12 % Cream 140 GM TUBE 1 APPL TOPICAL ×2 (09:25→21:34)
--- NOTE | 2021-09-15 15:12 | HO.PSYCHPN ---
Subjective Subjective Date of Service: 09/15/21 Reason For Visit: crisis Interim History: pt seen with remote interpretive services. she denies any problems with sleep or with morning sedation. the only issue she raises is that sometimes she has words in her head but she is unable to pronounce them. she states this started relatively recently and has improved since she came into the hospital. MD replies this is likely a symptom of her depression and will continue to improve with time on medication. she expresses understanding. she requests to discharge tomorrow at 1100, which is agreed upon. would like scripts sent to [facility]. per staff, slept 6-8 hours overnight. ate 60% lunch. denies dep/anx. states, nothing tastes good here. med-compliant. spending much time watching TV. Mental Status Exam Mental Status Exam Narrative: appropriately dressed and groomed. PMR improved quite substantially from 4 days ago. cooperative. speech nml rate and latency, decreased prosody. thoughts linear and logical without apparent delusions or paranoia. affect more flexible, hypo-intense, non-labile. mood good. no SI/HI/AVH. Diagnostics Vital Signs (24Hr): Vital Signs - 24 hr 09/14/21 18:00 09/15/21 08:22 09/15/21 09:20 Temperature 98.0 F 97.8 F Pulse Rate 61 67 67 Respiratory Rate 16 Blood Pressure 160/72 H 137/62 137/62 Pulse Oximetry 99 Body Mass Index 41.0 Labs Results: 09/09/21 13:31 09/09/21 13:31 Medications Medications Current Medications Acetaminophen (Acetaminophen 325 Mg Tablet) 650 mg PO Q6H PRN PRN Reason: Headache/Pain Mild Scale (1-3) Al Hydroxide/Mg Hydroxide (Magnesium Hydrox/Alum Hydrox 30 Ml Oral.Susp) 30 ml PO Q6H PRN PRN Reason: Heartburn/Nausea Aspirin (Aspirin Enteric Coated 81 Mg Tablet.) 81 mg PO DAILY [facility] Last Admin: 09/15/21 09:21 Dose: 81 mg Documented by: Atorvastatin Calcium (Atorvastatin Calcium 20 Mg Tablet) 20 mg PO BEDTIME [facility] Last Admin: 09/14/21 20:56 Dose: 20 mg Documented by: Clonidine HCl (Clonidine Hcl 0.1 Mg Tablet) 0.1 mg PO Q4H PRN; Protocol PRN Reason: Sbp > 150 Last Admin: 09/09/21 16:52 Dose: 0.1 mg Documented by: Cyanocobalamin (Cyanocobalamin (Vitamin B-12) 1,000 Mcg Tablet) 1,000 mcg PO DAILY [facility] Last Admin: 09/15/21 09:20 Dose: 1,000 mcg Documented by: Escitalopram Oxalate (Escitalopram Oxalate 10 Mg Tablet) 10 mg PO DAILY [facility] Last Admin: 09/15/21 09:20 Dose: 10 mg Documented by: Fluticasone Propionate (Fluticasone Propionate 100 Mcg Blst.W.Dev) 1 puff INHALE RBID PRN PRN Reason: Wheezing Furosemide (Furosemide 40 Mg Tablet) 40 mg PO DAILY [facility]; Protocol Last Admin: 09/15/21 09:19 Dose: 40 mg Documented by: Hydrochlorothiazide (Hydrochlorothiazide 12.5 Mg Tablet) 12.5 mg PO DAILY [facility] Last Admin: 09/15/21 09:21 Dose: 12.5 mg Documented by: Hydroxyzine HCl (Hydroxyzine Hcl 25 Mg Tablet) 25 mg PO BEDTIME PRN PRN Reason: Anxiety Lactic Acid (Ammonium Lactate 12 % Cream 140 Gm Tube) 1 appl TOPICAL BID [facility]; Protocol Last Admin: 09/15/21 09:25 Dose: 1 appl Documented by: Levothyroxine Sodium (Levothyroxine Sodium 50 Mcg Tablet) 50 mcg PO DAILY@0600 [facility] Last Admin: 09/15/21 08:37 Dose: 50 mcg Documented by: Magnesium Hydroxide (Milk Of Magnesia 30 Ml Oral.Susp) 30 ml PO DAILY PRN PRN Reason: Constipation Last Admin: 09/11/21 21:24 Dose: 30 ml Documented by: Mirtazapine (Mirtazapine 15 Mg Tablet) 15 mg PO BEDTIME [facility] Last Admin: 09/14/21 20:56 Dose: 15 mg Documented by: Mirtazapine (Mirtazapine 15 Mg Tablet) 15 mg PO BEDTIME PRN PRN Reason: insomnia Naproxen (Naproxen 250 Mg Tablet) 250 mg PO BID [facility] Last Admin: 09/15/21 09:20 Dose: 250 mg Documented by: Olanzapine (Olanzapine 5 Mg Tablet) 5 mg PO BEDTIME [facility] Last Admin: 09/14/21 20:56 Dose: 5 mg Documented by: Polyethylene Glycol (Polyethylene Glycol 3350 17 Gm Powd.Pack) 17 gm PO DAILY PRN PRN Reason: Constipation Last Admin: 09/11/21 11:55 Dose: 17 gm Documented by: Trazodone HCl (Trazodone Hcl 50 Mg Tablet) 50 mg PO BEDTIME PRN PRN Reason: Insomnia Last Admin: 09/14/21 20:56 Dose: 50 mg Documented by: Valsartan (Valsartan 80 Mg Tablet) 80 mg PO DAILY [facility] Last Admin: 09/15/21 09:20 Dose: 80 mg Documented by: Allergies Allergies Allergy/AdvReac Type Severity Reaction Status Date / Time No Known Allergies Allergy Unverified 09/09/21 12:18 Assessment & Plan Assessment & Plan (1) Major depressive disorder, recurrent severe without psychotic features: Status: Acute Code(s): F33.2 - Major depressive disorder, recurrent severe without psychotic features Assessment and Plan: PLAN: started remeron at HS for appetite stimulation, sedation, and anti-depressant effect. started zyprexa at HS for appetite stimulation, sedation, anxiolytic and anti-depressant effect. DCed gabapentin as likely not helpful for her and causing grogginess; morning post-medication sedation improved after DC of gabapentin. continued home meds otherwise. discharge tomorrow at 11. I spent minutes with the patient and/or on the patient floor today, greater than?50% of which was spent counseling/coordinating care. Reason for contiued inpatient stay Substantial Risk for: inability to function and rapid decompensation
[2021-09-15 18:00] VITALS: BP 129/61; PULSE 66; RESP 16; TEMP 36.8; O2SAT 96
[2021-09-15] MEDS: Mirtazapine 15 MG TABLET PO (21:34)
[2021-09-15] MEDS: traZODone HCL 50 MG TABLET PO (21:34)
[2021-09-15] MEDS: OLANZapine 5 MG TABLET PO (21:34)
[2021-09-15] MEDS: Atorvastatin Calcium 20 MG TABLET PO (21:34)
[2021-09-15] MEDS: hydrOXYzine HCL 25 MG TABLET PO (21:35)
[2021-09-16] MEDS: Levothyroxine Sodium 50 MCG TABLET PO (06:54)
[2021-09-16] MEDS: Furosemide 40 MG TABLET PO (08:31)
[2021-09-16] MEDS: Escitalopram Oxalate 10 MG TABLET PO (08:31)
[2021-09-16] MEDS: Aspirin Enteric Coated 81 MG TABLET.DR PO (08:31)
[2021-09-16] MEDS: Cyanocobalamin (Vitamin B-12) 1,000 MCG TABLET 1000 MCG PO (08:31)
[2021-09-16 08:32] VITALS: BP 132/83; PULSE 65
[2021-09-16] MEDS: hydroCHLOROthiazide 12.5 MG TABLET PO (08:32)
[2021-09-16] MEDS: Valsartan 80 MG TABLET PO (08:32)
[2021-09-16] MEDS: Ammonium Lactate 12 % Cream 140 GM TUBE 1 APPL TOPICAL (08:35)
[2021-09-16 08:41] VITALS: BP 132/83; PULSE 63; TEMP 36.5; O2SAT 95
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
[2021-09-16] MEDS: NaPROXEN 250 MG TABLET PO (10:13)
--- NOTE | 2021-11-06 11:15 | HE.PHANOTE ---
RE PT OWN MED PT WAS DISCHARGED 09/16/21. Per policy, medication to be disposed of in 30 days. Called patient 11/06/21, endorsed discarding med Thanks Gabriel
== END 2021-09-16 11:31 | disposition home or self-care (01) | DRG 885 ==
LOC: HO.ED 15:05 → HO.PADLT16 15:06
PROVIDERS: Physician Assistant; Admitting Provider Psychiatry & Neurology Psychiatry; Emergency Provider Emergency Medicine; Visit Provider Psychiatry & Neurology Psychiatry
DX: F33.2 Major depressive disorder, recurrent severe without psychotic features (principal); N39.0 Urinary tract infection, site not specified; Z20.822 Contact with and (suspected) exposure to COVID-19; Z91.14 Patient's other noncompliance with medication regimen; Z79.1 Long term (current) use of non-steroidal anti-inflammatories (NSAID); Z79.82 Long term (current) use of aspirin; Z79.890 Hormone replacement therapy; Z79.899 Other long term (current) drug therapy
CPT/HCPCS: 36415; 80048; 80076; 80307; 81001; 83735; 85025; 87086; 87635; 93005; 99285